=== PATIENT | female | born 1955 | race Caucasian/White ===

== ENCOUNTER 2020-04-06 11:00 | Emergency (ER) | payer SELFPAY ==
[~2020-04-06] VITALS: Ht 170.2 cm; Wt 106.1 kg
--- NOTE | 2020-04-06 11:24 | ED General ---
General Stated Complaint: ABNORMAL EKG History of Present Illness Date Seen by Provider: Apr 06, 2020 Time Seen by Provider: 11:23 Initial Comments 64-year-old female sent in due to chest pain and shortness of breath. Patient reports her symptoms have been going on for about 5 days. She has a history of emphysema/COPD. She has right-sided chest pain that gets worse with deep breaths. She denies any nausea vomiting diaphoresis or radiation of the pain. Patient continues to smoke a pack a day for cigarettes. She has no increased cough, fevers or chills. Allergies and Home Medications Allergies Coded Allergies: No Known Drug Allergies (Unverified , 04/06/20) Home Medications Albuterol Sulfate 18 Gm Hfa.aer.ad, 18 GM INH Q6H PRN for SHORTNESS OF BREATH Prescribed by: PREM MILIAN on 04/06/20 1258 Azithromycin 250 Mg Tablet, 250 MG PO UD TAKE 2 TABLETS ON DAY ONE THEN TAKE 1 TABLET DAILY FOR FOUR MORE DAYS Prescribed by: PREM MILIAN on 04/06/20 1258 Prednisone 20 Mg Tab, 40 MG PO DAILY Prescribed by: PREM MILIAN on 04/06/20 1258 Patient Home Medication List Home Medication List Reviewed: Yes Review of Systems Review of Systems Constitutional: No chills, No fever Respiratory: orthopnea, short of breath Cardiovascular: chest pain; No palpitations Gastrointestinal: No abdominal pain, No nausea, No vomiting Genitourinary: no symptoms reported Musculoskeletal: no symptoms reported Skin: no symptoms reported Psychiatric/Neurological: No Symptoms Reported Hematologic/Lymphatic: No Symptoms Reported Immunological/Allergic: no symptoms reported Past Djrynng-Urdaob-Uxyjys Hx Past Med/Social Hx: Reviewed Nursing Past Med/Soc Hx Physical Exam Vital Signs Vital Signs - First Documented 04/06/20 04/06/20 11:36 12:24 Temp 36.7 Pulse 79 Resp 18 B/P (MAP) 131/105 (114) Pulse Ox 93 O2 Delivery Room Air Capillary Refill : Height, Weight, BMI Height: '" Weight: lbs. oz. kg; BMI Method: General Appearance: No Apparent Distress, WD/WN Respiratory: No Accessory Muscle Use, Wheezing (Mild especially on the right side), Other (Tender to palpation right chest wall consistent with pleurisy) Cardiovascular: Regular Rate, Rhythm, No Edema Gastrointestinal: Non Tender, Soft Extremity: Normal Inspection, Normal Range of Motion Neurologic/Psychiatric: Alert, Oriented x3, Normal Mood/Affect, intelligence operations specialist II-XII Norm as Tested Skin: Normal Color, Warm/Dry Progress/Results/Core Measures Suspected Sepsis SIRS Temperature: Pulse: Respiratory Rate: Laboratory Tests 04/06/20 12:08: White Blood Count 12.1H Blood Pressure / Mean: Laboratory Tests 04/06/20 12:08: Creatinine 0.81, INR Comment 0.9, Platelet Count 348, Total Bilirubin 0.4 Results/Orders Lab Results Laboratory Tests Test 04/06/20 12:08 Range/Units White Blood Count 12.1 H 4.3-11.0 10^3/uL Red Blood Count 4.87 3.80-5.11 10^6/uL Hemoglobin 15.0 11.5-16.0 g/dL Hematocrit 45 35-52 % Mean Corpuscular Volume 93 80-99 fL Mean Corpuscular Hemoglobin 31 25-34 pg Mean Corpuscular Hemoglobin Concent 33 32-36 g/dL Red Cell Distribution Width 13.4 10.0-14.5 % Platelet Count 348 130-400 10^3/uL Mean Platelet Volume 9.9 9.0-12.2 fL Immature Granulocyte % (Auto) 0 % Neutrophils (%) (Auto) 55 42-75 % Lymphocytes (%) (Auto) 34 12-44 % Monocytes (%) (Auto) 8 0-12 % Eosinophils (%) (Auto) 2 0-10 % Basophils (%) (Auto) 0 0-10 % Neutrophils # (Auto) 6.7 1.8-7.8 10^3/uL Lymphocytes # (Auto) 4.1 H 1.0-4.0 10^3/uL Monocytes # (Auto) 0.9 0.0-1.0 10^3/uL Eosinophils # (Auto) 0.3 0.0-0.3 10^3/uL Basophils # (Auto) 0.1 0.0-0.1 10^3/uL Immature Granulocyte # (Auto) 0.1 0.0-0.1 10^3/uL Prothrombin Time 12.8 12.2-14.7 SEC INR Comment 0.9 0.8-1.4 Activated Partial Thromboplast Time 28 24-35 SEC Sodium Level 139 135-145 MMOL/L Potassium Level 4.0 3.6-5.0 MMOL/L Chloride Level 100 98-107 MMOL/L Carbon Dioxide Level 29 21-32 MMOL/L Anion Gap 10 5-14 MMOL/L Blood Urea Nitrogen 13 7-18 MG/DL Creatinine 0.81 0.60-1.30 MG/DL Estimat Glomerular Filtration Rate > 60 BUN/Creatinine Ratio 16 Glucose Level 68 L 70-105 MG/DL Calcium Level 9.0 8.5-10.1 MG/DL Corrected Calcium 8.8 8.5-10.1 MG/DL Magnesium Level 1.6 1.6-2.4 MG/DL Total Bilirubin 0.4 0.1-1.0 MG/DL Aspartate Amino Transf (AST/SGOT) 19 5-34 U/L Alanine Aminotransferase (ALT/SGPT) 18 0-55 U/L Alkaline Phosphatase 56 40-136 U/L Troponin I < 0.028 <0.028 NG/ML Total Protein 7.3 6.4-8.2 GM/DL Albumin 4.2 3.2-4.5 GM/DL My Orders Orders - MILIAN,PREM L DO Cbc With Automated Diff (04/06/20 11:33) Magnesium (04/06/20 11:33) Chest 1 View, Ap/Pa Only (04/06/20 11:33) Ekg Tracing (04/06/20 11:33) Comprehensive Metabolic Panel (04/06/20 11:33) Protime With Inr (04/06/20 11:33) Partial Thromboplastin Time (04/06/20 11:33) Monitor-Rhythm Ecg Trace Only (04/06/20 11:33) Ed Iv/Invasive Line Start (04/06/20 11:33) Troponin I (04/06/20 11:33) Albuterol/Ipra Inhalation Soln (Duoneb I (04/06/20 11:45) Svn Small Volume Nebulizer (04/06/20 11:37) Medications Given in ED Current Medications Medications Dose Ordered Sig/Gerard Route Start Time Stop Time Status Last Admin Dose Admin Albuterol/ Ipratropium 3 ml ONCE ONCE INH 04/06/20 11:45 04/06/20 11:46 DC 04/06/20 12:24 3 ML Vital Signs/I&O 04/06/20 04/06/20 04/06/20 11:36 11:41 12:24 Temp 36.7 Pulse 79 Resp 18 B/P (MAP) 131/105 (114) Pulse Ox 93 O2 Delivery Room Air Room Air Room Air Capillary Refill : Progress Note : Time: 12:51 Progress Note Patient feels significantly better following her breathing treatment. Her symptoms are consistent with the chronic bronchitis/emphysema flare. Patient will be discharged home with steroid, azithromycin and albuterol inhaler. She is stable upon discharge. ECG Initial ECG Impression Date: Apr 06, 2020 Initial ECG Impression Time: 11:45 Initial ECG Rate: 74 Initial ECG Rhythm: Normal Sinus Initial ECG Impression: Nonspecific Changes Comment Normal sinus rhythm, nonspecific changes, no acute findings Diagnostic Imaging Diagonstic Imaging: Xray Plain Films/CT/US/NM/MRI: chest Comments [facility], [place] NAME: MATTHEW BURNS [facility] REC#: [id number] PT STATUS: REG ER : 1955 PHYSICIAN: PREM MILIAN DO ADMIT DATE: 04/06/20/ER Draft Date of Exam:04/06/20 CHEST 1 VIEW, AP/PA ONLY INDICATION: Chest pain. COMPARISON: No prior examinations are available for comparison. FINDINGS: The heart size, mediastinal configuration, and pulmonary vascularity are within normal limits. There is no pleural effusion, pneumothorax, or pneumonia. The osseous structures are unremarkable. IMPRESSION: No acute cardiopulmonary abnormality. Departure Impression Primary Impression: COPD exacerbation Disposition: 01 HOME, SELF-CARE Condition: Stable Departure-Patient Inst. Referrals: EDDIE ROMAN MD (PCP/Family) Primary Care Physician Patient Instructions: How to Use a Spacer With a Mask, COPD Exacerbation, Adult ED Add. Discharge Instructions: Follow-up with your primary care provider next week for recheck of today's symptoms Scripts Albuterol Sulfate (Ventolin Hfa) 18 Gm Hfa.aer.ad 18 GM INH Q6H PRN for SHORTNESS OF BREATH, #1 EA Prov: PREM MILIAN DO 04/06/20 Prednisone (Prednisone) 20 Mg Tab 40 MG PO DAILY, #6 TAB 0 Refills Prov: PREM MILIAN DO 04/06/20 Azithromycin (Azithromycin) 250 Mg Tablet 250 MG PO UD, #6 TAB TAKE 2 TABLETS ON DAY ONE THEN TAKE 1 TABLET DAILY FOR FOUR MORE DAYS Prov: PERM MILIAN DO 04/06/20 PREM MILIAN DO Apr 06, 2020 11:24
[2020-04-06] MEDS ORDERED: RT-ALBUTEROL/IPRATROPIUM 3 ML (DUONEB) VIAL INH ONE (11:45)
[2020-04-06 12:21] LABS: BASOPHILS # (AUTO) 0.1 10^3/uL (0.0-0.1); BASOPHILS % (AUTO) 0 % (0-10); EOSINOPHILS # (AUTO) 0.3 10^3/uL (0.0-0.3); EOSINOPHILS % (AUTO) 2 % (0-10); HEMATOCRIT 45 % (35-52); LYMPHOCYTES # (AUTO) 4.1 10^3/uL (1.0-4.0); LYMPHOCYTES % (AUTO) 34 % (12-44); MEAN CORPUSCULAR HEMOGLOBIN 31 pg (25-34); MEAN CORPUSCULAR HGB CONC 33 g/dL (32-36); MEAN CORPUSCULAR VOLUME 93 fL (80-99); MEAN PLATELET VOLUME 9.9 fL (9.0-12.2); MONOCYTES # (AUTO) 0.9 10^3/uL (0.0-1.0); MONOCYTES % (AUTO) 8 % (0-12); NEUTROPHILS # (AUTO) 6.7 10^3/uL (1.8-7.8); NEUTROPHILS % (AUTO) 55 % (42-75); PLATELET COUNT 348 10^3/uL (130-400); WHITE BLOOD COUNT 12.1 10^3/uL (4.3-11.0)
--- NOTE | 2020-04-06 12:23 | Diagnostic Imaging Report ---
INDICATION: Chest pain. COMPARISON: No prior examinations are available for comparison. FINDINGS: The heart size, mediastinal configuration, and pulmonary vascularity are within normal limits. There is no pleural effusion, pneumothorax, or pneumonia. The osseous structures are unremarkable. IMPRESSION: No acute cardiopulmonary abnormality. Dictated by: Dictated on workstation # [id number]
[2020-04-06 12:29] LABS: ALBUMIN 4.2 GM/DL (3.2-4.5); CHLORIDE 100 MMOL/L (98-107); SODIUM 139 MMOL/L (135-145)
[2020-04-06 12:31] LABS: GLUCOSE 68 MG/DL (70-105); TOTAL PROTEIN 7.3 GM/DL (6.4-8.2)
[2020-04-06 12:32] LABS: CARBON DIOXIDE 29 MMOL/L (21-32)
[2020-04-06 12:33] LABS: BILIRUBIN,TOTAL 0.4 MG/DL (0.1-1.0); INR 0.9 (0.8-1.4); PROTHROMBIN TIME PATIENT 12.8 SEC (12.2-14.7)
[2020-04-06 12:35] LABS: ALKALINE PHOSPHATASE 56 U/L (40-136); CREATININE SERUM 0.81 MG/DL (0.60-1.30); GFR ESTIMATED > 60
[2020-04-06 12:36] LABS: BUN/CREATININE RATIO 16
[2020-04-06 12:38] LABS: ALANINE AMINOTRANSFERASE 18 U/L (0-55); MAGNESIUM 1.6 MG/DL (1.6-2.4)
[2020-04-06] MEDS ORDERED: PRD20T PO (12:58)
[2020-04-06] MEDS ORDERED: AZIT250T12 PO (12:58)
[2020-04-06] MEDS ORDERED: ALBU18HF2 INH (12:58)
[2020-04-06 13:11] VITALS: BP 144/82
== END 2020-04-06 13:11 | disposition home or self-care (01) ==
LOC: EDUNIT# 11:00 → ER 11:02
DX: J44.1 Chronic obstructive pulmonary disease with (acute) exacerbation (principal); Z79.52 Long term (current) use of systemic steroids
CPT/HCPCS: 36415; 71045; 80053; 83735; 84484; 85025; 85610; 85730; 93005; 93041; 94640

== ENCOUNTER 2021-08-01 21:30 | Inpatient (IN) | payer SELFPAY ==
[~2021-08-01] VITALS: Ht 170.1 cm; Wt 104.8 kg
[~2021-08-01 21:30] MED LIST: ALBU18HF2 INH; AZIT250T12 PO; PRD20T PO
[2021-08-01] MEDS ORDERED: GUAI600T43 PO (22:58)
[2021-08-01] MEDS ORDERED: LOVA40TA2 PO (22:58)
[2021-08-01] MEDS ORDERED: [UNRECOGNIZED DRUG - CODE] IV (22:58)
[2021-08-01] MEDS ORDERED: AMLO5TAB4 PO ×2 (22:58)
[2021-08-01] MEDS ORDERED: HYDR-3817 PO (22:58)
[2021-08-01] MEDS ORDERED: BUDE10.22 IH (22:58)
[2021-08-01] MEDS ORDERED: HYDR25TA4 PO (22:58)
[2021-08-01 23:42] VITALS: BP 151/82
[2021-08-02] VITALS (7 sets, daily range): BP systolic 131–173; BP diastolic 68–90
[2021-08-02] MEDS ORDERED: RT-ALBUTEROL HFA 8.5 GM INHALER IH PRN (03:15)
[2021-08-02] MEDS: dexAMETHasone 6 MG TAB (DECADRON) PO SCH ×2 (06:08→08:08)
[2021-08-02 07:25] LABS: HEMATOCRIT 47 % (35-52); HEMOGLOBIN 15.1 g/dL (11.5-16.0); MEAN CORPUSCULAR HEMOGLOBIN 31 pg (25-34); MEAN CORPUSCULAR HGB CONC 33 g/dL (32-36); MEAN CORPUSCULAR VOLUME 94 fL (80-99); MEAN PLATELET VOLUME 10.2 fL (9.0-12.2); PLATELET COUNT 284 10^3/uL (130-400); WHITE BLOOD COUNT 4.2 10^3/uL (4.3-11.0)
[2021-08-02 07:34] LABS: ALBUMIN 3.6 GM/DL (3.2-4.5)
[2021-08-02 07:35] LABS: POTASSIUM 4.2 MMOL/L (3.6-5.0)
[2021-08-02 07:36] LABS: CALCIUM 9.1 MG/DL (8.5-10.1)
[2021-08-02 07:37] LABS: TOTAL PROTEIN 6.8 GM/DL (6.4-8.2)
[2021-08-02 07:39] LABS: BILIRUBIN,TOTAL 0.4 MG/DL (0.1-1.0)
[2021-08-02 07:41] LABS: CREATININE SERUM 0.68 MG/DL (0.60-1.30)
[2021-08-02] MEDS: AtorvaSTATin TABLET 10 MG TABLET PO SCH (08:07)
[2021-08-02] MEDS: ENOXAPARIN 40 MG/0.4 ML (LOVENOX) SYR SQ SCH (08:07)
[2021-08-02] MEDS: amLODIPine 5 MG (NORVASC) TAB PO SCH (08:07)
[2021-08-02] MEDS: HYDROcodone/APAP 7.5 MG/325 MG (LORTAB, LORCET PLUS) TABLET PO PRN ×2 (08:07→21:39)
--- NOTE | 2021-08-02 08:53 | History & Physical ---
HPI History of Present Illness: Pt states she has had emphysema for years. She has had a couple of episodes over the years of shortness of breath and got antibiotics and was fine, this year same type of thing and she thought it was happening again, went to see clinic around July 24 and got antibiotics and prednisone. Had a lot of phlegm. She did feel better after she got those for a couple of days, but then stalled out in recovery, phlegm color cleared but she still felt short of breath a week later, getting harder to breathe at night. She thought maybe her SpO2 monitor was wrong because it was running low in the 80s. She went back in yesterday and had an xray and COVID test and given antibiotics. By the time she got home, they called and said she had bilateral pneumonia and positive COVID test and needed steroids, she was having low oxygen saturations so they told her to go the ER. At [facility] they transferred her here due to her comorbidities. Her on June 13 and on July 20 they had a memorial service, and she states by the many family members were sick and already back home across [address]. She has not been vaccinated. Source: patient Date seen by provider: Aug 02, 2021 Time Seen by Provider: 08:53 Attending Physician Ran Joe MD PCP Admitting Physician: Rena Mckeon MD Attending Physician: Rena Mckeon MD Consult Date of Admission Aug 01, 2021 at 21:30 Home Medications Home Medications Reviewed patient Home Medication Reconciliation performed by pharmacy medication reconciliations podiatric technician and/or nursing. Patients Allergies have been reviewed. Allergies Coded Allergies: No Known Drug Allergies (Unverified , 04/06/20) RGP-Hutqxc-Edrvtv Hx Patient Social History Smoking Status: Current Everyday Smoker 2nd Hand Smoke Exposure: No Recent Hopitalizations: No Alcohol Use?: No Tobacco type used: Cigarettes Have you traveled recently?: No Immunizations Up To Date Influenza Vaccine Up-to-Date: No; Not Current Past Medical History PMHx: Emphysema Chronic pain Diabetes- diet controlled HTN HLD SurgHx: Cholecystectomy 1980 Tubal ligation 1989 Right Carpal tunnel release 1992 Review of Systems (CHC) Constitutional: fever (subjective) Respiratory: cough, short of breath Cardiovascular: chest pain (with coughing) Gastrointestinal: abdominal pain (mild lower abdominal discomfort); No constip ation; diarrhea (mild/soft stool), nausea (when she drank Ensure); No vomiting Genitourinary: No dysuria Musculoskeletal: neck pain Skin: No rash Reviewed Test Results Reviewed Test Results Lab Laboratory Tests Test 08/02/21 07:15 Range/Units White Blood Count 4.2 L 4.3-11.0 10^3/uL Red Blood Count 4.95 3.80-5.11 10^6/uL Hemoglobin 15.1 11.5-16.0 g/dL Hematocrit 47 35-52 % Mean Corpuscular Volume 94 80-99 fL Mean Corpuscular Hemoglobin 31 25-34 pg Mean Corpuscular Hemoglobin Concent 33 32-36 g/dL Red Cell Distribution Width 13.9 10.0-14.5 % Platelet Count 284 130-400 10^3/uL Mean Platelet Volume 10.2 9.0-12.2 fL D-Dimer 0.65 H 0.00-0.49 UG/ML Sodium Level 141 135-145 MMOL/L Potassium Level 4.2 3.6-5.0 MMOL/L Chloride Level 99 98-107 MMOL/L Carbon Dioxide Level 29 21-32 MMOL/L Anion Gap 13 5-14 MMOL/L Blood Urea Nitrogen 8 7-18 MG/DL Creatinine 0.68 0.60-1.30 MG/DL Estimat Glomerular Filtration Rate 97 BUN/Creatinine Ratio 12 Glucose Level 177 H 70-105 MG/DL Calcium Level 9.1 8.5-10.1 MG/DL Corrected Calcium 9.4 8.5-10.1 MG/DL Total Bilirubin 0.4 0.1-1.0 MG/DL Aspartate Amino Transf (AST/SGOT) 19 5-34 U/L Alanine Aminotransferase (ALT/SGPT) 29 0-55 U/L Alkaline Phosphatase 74 40-136 U/L C-Reactive Protein High Sensitivity 3.88 H 0.00-0.50 MG/DL Total Protein 6.8 6.4-8.2 GM/DL Albumin 3.6 3.2-4.5 GM/DL Physical Exam-(CHC) Physical Exam Vital Signs VS - Last 72 Hours, by Label 08/01/21 08/02/21 08/02/21 08/02/21 23:42 00:47 01:00 02:20 Temp 37.0 Pulse 75 Resp 18 B/P (MAP) 151/82 (105) Pulse Ox 92 92 92 O2 Delivery Nasal Cannula Nasal Cannula Nasal Cannula Nasal Cannula O2 Flow Rate 3.00 3.00 3.00 3.00 08/02/21 08/02/21 08/02/21 08/02/21 03:02 03:54 07:32 09:20 Temp 37.1 36.4 36.5 Pulse 78 75 70 Resp 18 20 B/P (MAP) 157/90 (112) 170/88 (115) Pulse Ox 86 94 91 94 O2 Delivery Nasal Cannula Nasal Cannula Nasal Cannula O2 Flow Rate 3.00 3.00 4.00 FiO2 21 08/02/21 11:16 Temp 36.4 Pulse 81 Resp 20 B/P (MAP) 173/77 (109) Pulse Ox 93 O2 Delivery Nasal Cannula O2 Flow Rate 4.00 Capillary Refill : General Appearance: no apparent distress Respiratory: no accessory muscle use, wheezing Cardiovascular: regular rate, rhythm Gastrointestinal: normal bowel sounds, non tender, soft Extremities: pedal edema (trace) Neurologic/Psychiatric: alert, normal mood/affect Skin: normal color, warm/dry Assessment/Plan Assessment/Plan Admission Status: Inpatient Order (span 2 midnights) Reason for Inpatient Admission: COVID19 pneumonia with hypoxia and underlying COPD (1) COVID-19 Status: Acute Assessment & Plan: Dexamethasone daily, breathing treatments and supplemental oxygen as needed. Has been sick for more than a week, uncertain onset of illness. (2) COPD (chronic obstructive pulmonary disease) Status: Chronic Assessment & Plan: Resume home inhaled steroid/LABA along with MAT protocol. Qualifiers: (3) COPD exacerbation Status: Acute Assessment & Plan: Dexamethasone given COVID19. (4) Hypertension Status: Chronic Assessment & Plan: Resume home meds Qualifiers: Qualified Codes: I10 - Essential (primary) hypertension (5) Diabetes mellitus Status: Chronic Assessment & Plan: Diet controlled. Diabetic diet, sliding scale insulin. Qualifiers: Qualified Codes: E11.9 - Type 2 diabetes mellitus without complications (6) Hyperlipidemia Status: Chronic Assessment & Plan: Resume home statin. (7) Chronic pain Status: Chronic Assessment & Plan: Resume home pain meds. (8) DVT prophylaxis Status: Acute Assessment & Plan: Enoxaparin RENA MCKEON MD Aug 02, 2021 08:53
[2021-08-02] MEDS: RT-ALBUTEROL HFA 8.5 GM INHALER IH SCH ×3 (09:15→22:00)
[2021-08-02] MEDS: RT--FLUTICASONE/SALMETEROL 113-14 (AIRDUO RespiCLICK) IH SCH ×2 (09:19→22:01)
[2021-08-02] MEDS: PROMETHAZINE/ CODEINE SYRUP 5 ML UDC PO PRN ×2 (11:46→17:13)
[2021-08-02] MEDS: NICOTINE 21 MG (NICODERM) PATCH TD SCH (11:46)
[2021-08-02] MEDS ORDERED: ALB0.5V INH (14:45)
[2021-08-02] MEDS ORDERED: RT-ALBUINH IH (14:45)
[2021-08-02] MEDS ORDERED: GUAI200T4 PO (14:45)
[2021-08-02] MEDS ORDERED: HYLANDS LEG CRAMPS PO (14:45)
[2021-08-02] MEDS ORDERED: DOXY-311 PO (14:45)
[2021-08-02] MEDS ORDERED: CETI10TA17 PO (14:45)
[2021-08-02] MEDS ORDERED: PROM473S9 PO (14:45)
[2021-08-02] MEDS: inSUlin ASPART (NovoLOG) 1 UNIT/0.01 ML (CHARGE PER UNIT) SC SCH ×2 (17:14→21:40)
[2021-08-03] VITALS: BP 132/73
[2021-08-03] MEDS: RT-ALBUTEROL HFA 8.5 GM INHALER IH SCH ×6 (02:37→22:43)
[2021-08-03 04:46] VITALS: BP 149/78
[2021-08-03 05:54] LABS: HEMATOCRIT 44 % (35-52); HEMOGLOBIN 13.8 g/dL (11.5-16.0); MEAN CORPUSCULAR HEMOGLOBIN 30 pg (25-34); MEAN CORPUSCULAR HGB CONC 31 g/dL (32-36); MEAN CORPUSCULAR VOLUME 95 fL (80-99); MEAN PLATELET VOLUME 10.1 fL (9.0-12.2); PLATELET COUNT 287 10^3/uL (130-400); WHITE BLOOD COUNT 10.4 10^3/uL (4.3-11.0)
[2021-08-03] MEDS: inSUlin ASPART (NovoLOG) 1 UNIT/0.01 ML (CHARGE PER UNIT) SC SCH ×4 (05:59→21:17)
--- NOTE | 2021-08-03 06:05 | Progress Note - Hospitalist ---
Subjective HPI/CC On Admission Date Seen by Provider: Aug 03, 2021 Time Seen by Provider: 10:00 Subjective/Events-last exam Patient feeling a lot better Chest x-ray will be ordered Wants to go but feels a bit too short of breath to do that today No pain reported RN has no concerns Review of Systems Pulmonary: Dyspnea Objective Exam Vital Signs Vital Signs Date Time Temp Pulse Resp B/P (MAP) Pulse Ox O2 Delivery O2 Flow Rate FiO2 08/04/21 03:40 36.1 68 16 137/76 (96) 95 Nasal Cannula 2.00 08/02/21 22:50 21 Capillary Refill : General Appearance: No Apparent Distress, WD/WN, Chronically ill, Obese Respiratory: No Accessory Muscle Use, No Respiratory Distress, Decreased Breath Sounds, Wheezing Cardiovascular: Regular Rate, Rhythm Neurologic/Psychiatric: Alert, Oriented x3, No Motor/Sensory Deficits, Normal Mood/Affect Results/Procedures Lab Patient resulted labs reviewed. Assessment/Plan Assessment and Plan Assess & Plan/Chief Complaint Assessment: COVID-19 pneumonia Hypoxia Smoker Dyspnea Plan: Check chest x-ray Home oxygen NICOLE Lilly DO Aug 03, 2021 06:05
[2021-08-03 06:12] LABS: ALBUMIN 3.4 GM/DL (3.2-4.5); POTASSIUM 4.2 MMOL/L (3.6-5.0)
[2021-08-03 06:13] LABS: CALCIUM 8.7 MG/DL (8.5-10.1)
[2021-08-03 06:14] LABS: TOTAL PROTEIN 6.2 GM/DL (6.4-8.2)
[2021-08-03 06:16] LABS: BILIRUBIN,TOTAL 0.3 MG/DL (0.1-1.0)
[2021-08-03 06:18] LABS: CREATININE SERUM 0.76 MG/DL (0.60-1.30)
[2021-08-03] MEDS: ENOXAPARIN 40 MG/0.4 ML (LOVENOX) SYR SQ SCH (06:29)
[2021-08-03] MEDS: RT--FLUTICASONE/SALMETEROL 113-14 (AIRDUO RespiCLICK) IH SCH ×2 (07:12→19:06)
[2021-08-03 07:50] VITALS: BP 135/77
[2021-08-03] MEDS: NICOTINE 21 MG (NICODERM) PATCH TD SCH (09:35)
[2021-08-03] MEDS: amLODIPine 5 MG (NORVASC) TAB PO SCH (09:35)
[2021-08-03] MEDS: AtorvaSTATin TABLET 10 MG TABLET PO SCH (09:36)
[2021-08-03] MEDS: NICOTINE PATCH REMOVAL TP SCH (09:36)
[2021-08-03 11:50] VITALS: BP 151/83
[2021-08-03] MEDS: HYDROcodone/APAP 7.5 MG/325 MG (LORTAB, LORCET PLUS) TABLET PO PRN ×2 (12:20→21:21)
--- NOTE | 2021-08-03 12:54 | Diagnostic Imaging Report ---
INDICATION: Wheezing. History of Covid pneumonia. FINDINGS: There is mild prominence of the pulmonary interstitial markings which would be compatible with a viral pneumonia. There are some patchy airspace opacities at the right base. There is no large effusion. There is no pneumothorax. The heart is unchanged from the prior examination when allowing for differences in technique. There are no findings to suggest edema or failure. IMPRESSION: Mild pulmonary interstitial prominence as well as a few airspace opacities at the right base. Findings could be seen in the setting of a viral pneumonia. There is no effusion or evidence of pulmonary edema. Dictated by: Dictated on workstation # [id number]
[2021-08-03 16:18] VITALS: BP 155/89
[2021-08-03 20:18] VITALS: BP 159/83
[2021-08-04 00:11] VITALS: BP 169/84
[2021-08-04] MEDS: RT-ALBUTEROL HFA 8.5 GM INHALER IH SCH ×6 (02:20→21:45)
[2021-08-04 03:40] VITALS: BP 137/76
[2021-08-04] MEDS: inSUlin ASPART (NovoLOG) 1 UNIT/0.01 ML (CHARGE PER UNIT) SC SCH ×4 (06:32→21:14)
[2021-08-04] MEDS: dexAMETHasone 6 MG TAB (DECADRON) PO SCH (06:33)
[2021-08-04] MEDS: ENOXAPARIN 40 MG/0.4 ML (LOVENOX) SYR SQ SCH (06:34)
[2021-08-04 07:01] LABS: BASOPHILS % (AUTO) 0 % (0-10); EOSINOPHILS % (AUTO) 0 % (0-10); HEMATOCRIT 46 % (35-52); HEMOGLOBIN 14.7 g/dL (11.5-16.0); LYMPHOCYTES # (AUTO) 1.6 10^3/uL (1.0-4.0); LYMPHOCYTES % (AUTO) 18 % (12-44); MEAN CORPUSCULAR HEMOGLOBIN 31 pg (25-34); MEAN CORPUSCULAR HGB CONC 32 g/dL (32-36); MEAN CORPUSCULAR VOLUME 96 fL (80-99); MEAN PLATELET VOLUME 9.6 fL (9.0-12.2); MONOCYTES % (AUTO) 12 % (0-12); NEUTROPHILS # (AUTO) 6.2 10^3/uL (1.8-7.8); NEUTROPHILS % (AUTO) 70 % (42-75); PLATELET COUNT 290 10^3/uL (130-400); WHITE BLOOD COUNT 8.9 10^3/uL (4.3-11.0)
[2021-08-04 07:24] LABS: ALBUMIN 3.5 GM/DL (3.2-4.5); BILIRUBIN,TOTAL 0.4 MG/DL (0.1-1.0); CALCIUM 9.1 MG/DL (8.5-10.1); CREATININE SERUM 0.71 MG/DL (0.60-1.30); POTASSIUM 4.3 MMOL/L (3.6-5.0); TOTAL PROTEIN 6.6 GM/DL (6.4-8.2)
--- NOTE | 2021-08-04 07:31 | Progress Note - Hospitalist ---
Subjective HPI/CC On Admission Date Seen by Provider: Aug 04, 2021 Time Seen by Provider: 11:00 Subjective/Events-last exam Patient remains shortness of breath Cough is still an issue Remains on 2 L of oxygen continuous She remains weak and lethargic Hopefully discharge tomorrow Review of Systems Pulmonary: Dyspnea, Cough Objective Exam Vital Signs Vital Signs Date Time Temp Pulse Resp B/P (MAP) Pulse Ox O2 Delivery O2 Flow Rate FiO2 08/04/21 20:30 36.1 72 20 175/83 (113) 92 Nasal Cannula 2.00 08/02/21 22:50 21 Capillary Refill : General Appearance: No Apparent Distress, WD/WN, Chronically ill Respiratory: Crackles, Wheezing Cardiovascular: Regular Rate, Rhythm Neurologic/Psychiatric: Alert, Oriented x3, No Motor/Sensory Deficits, Normal Mood/Affect Results/Procedures Lab Laboratory Tests 08/04/21 06:53 Patient resulted labs reviewed. Assessment/Plan Assessment and Plan Assess & Plan/Chief Complaint Assessment: COVID-19 pneumonia Hypoxia Smoker Dyspnea Plan: Check chest x-ray Home oxygen eval Monitor wheezing NICOLE VILLARREAL DO Aug 04, 2021 07:31
[2021-08-04] MEDS: RT--FLUTICASONE/SALMETEROL 113-14 (AIRDUO RespiCLICK) IH SCH ×2 (08:06→21:45)
[2021-08-04] MEDS: AtorvaSTATin TABLET 10 MG TABLET PO SCH (08:09)
[2021-08-04] MEDS: NICOTINE PATCH REMOVAL TP SCH (08:09)
[2021-08-04] MEDS: amLODIPine 5 MG (NORVASC) TAB PO SCH (08:09)
[2021-08-04] MEDS: NICOTINE 21 MG (NICODERM) PATCH TD SCH (08:09)
[2021-08-04] MEDS: HYDROcodone/APAP 7.5 MG/325 MG (LORTAB, LORCET PLUS) TABLET PO PRN ×2 (08:12→21:14)
[2021-08-04 08:23] VITALS: BP 156/81
[2021-08-04] MEDS: PROMETHAZINE/ CODEINE SYRUP 5 ML UDC PO PRN (10:03)
[2021-08-04 11:11] VITALS: BP 148/81
[2021-08-04] MEDS ORDERED: ACETAMINOPHEN 500 MG TAB (TYLENOL) PO ONE (12:45)
[2021-08-04 16:03] VITALS: BP 155/82
[2021-08-04 20:30] VITALS: BP 175/83
[2021-08-05] VITALS: BP 152/84
[2021-08-05 04:00] VITALS: BP 148/82
[2021-08-05] MEDS: inSUlin ASPART (NovoLOG) 1 UNIT/0.01 ML (CHARGE PER UNIT) SC SCH ×2 (06:01→12:02)
[2021-08-05] MEDS: ENOXAPARIN 40 MG/0.4 ML (LOVENOX) SYR SQ SCH (06:04)
[2021-08-05] MEDS: dexAMETHasone 6 MG TAB (DECADRON) PO SCH (06:04)
--- NOTE | 2021-08-05 06:12 | Progress Note - Hospitalist ---
Subjective HPI/CC On Admission Date Seen by Provider: Aug 05, 2021 Time Seen by Provider: 10:00 Objective Exam Vital Signs Vital Signs Date Time Temp Pulse Resp B/P (MAP) Pulse Ox O2 Delivery O2 Flow Rate FiO2 08/05/21 13:58 36.8 79 20 184/92 95 Nasal Cannula 2.00 08/02/21 22:50 21 Capillary Refill : Results/Procedures Lab Patient resulted labs reviewed. Assessment/Plan Assessment and Plan Assess & Plan/Chief Complaint Assessment: COVID-19 pneumonia Hypoxia Smoker Dyspnea Plan: Check chest x-ray Home oxygen eval Monitor wheezing NICOLE VILLARREAL DO Aug 05, 2021 06:12
[2021-08-05] MEDS: RT-ALBUTEROL HFA 8.5 GM INHALER IH SCH ×2 (07:03→11:45)
[2021-08-05] MEDS: RT--FLUTICASONE/SALMETEROL 113-14 (AIRDUO RespiCLICK) IH SCH (07:04)
[2021-08-05 08:23] VITALS: BP 161/88
[2021-08-05] MEDS ORDERED: GFCD10B PO (09:53)
[2021-08-05] MEDS ORDERED: MONT10TA21 PO (09:53)
[2021-08-05] MEDS ORDERED: DEXA6TAB PO (09:53)
[2021-08-05] MEDS ORDERED: NICO1PAT34 TD (09:53)
[2021-08-05] MEDS: NICOTINE PATCH REMOVAL TP SCH (10:56)
[2021-08-05] MEDS: NICOTINE 21 MG (NICODERM) PATCH TD SCH (10:56)
[2021-08-05] MEDS: amLODIPine 5 MG (NORVASC) TAB PO SCH (10:57)
[2021-08-05] MEDS: AtorvaSTATin TABLET 10 MG TABLET PO SCH (10:57)
[2021-08-05] MEDS: HYDROcodone/APAP 7.5 MG/325 MG (LORTAB, LORCET PLUS) TABLET PO PRN (10:57)
[2021-08-05 11:43] VITALS: BP 184/92
[2021-08-05 13:58] VITALS: BP 184/92
--- NOTE | 2021-08-05 21:27 | Discharge Summary ---
Discharge Summary Hospital Course Was the Problem List Reviewed?: Yes Problems/Dx: (1) COVID-19 Status: Acute (2) COPD (chronic obstructive pulmonary disease) Status: Chronic Qualifiers: (3) Hypertension Status: Chronic Qualifiers: Qualified Codes: I10 - Essential (primary) hypertension (4) Diabetes mellitus Status: Chronic Qualifiers: Qualified Codes: E11.9 - Type 2 diabetes mellitus without complications Hospital Course Date of Admission: Aug 01, 2021 at 21:30 Admission Diagnosis : Family Physician/Provider: Ran Joe MD Date of Discharge: 08/05/21 Discharge Diagnosis: acute hypoxic resp failure, COVID 19, AeCOPD, smoker Hospital Course: Hospital course patient had an uneventful hospital course after she was admitted for COVID-19 pneumonia with hypoxia and exacerbation of COPD with current smoking. Smoking cessation counseled. IV Decadron initiated along with oxygen supplementation and incentive spirometer. Labs and chest x-ray remained stable patient was discharged in improved condition on 2 L continuous oxygen. Labs and Pending Lab Test: Laboratory Tests 08/05/21 05:59: Glucometer 142H 08/05/21 11:42: Glucometer 273H Home Meds Active Robitussin Ac (Codeine) Syrup (Guaifenesin/Codeine Phosphate) 10 Ml Syrp 10 Ml PO Q4H PRN Singulair (Montelukast Sodium) 10 Mg Tablet 10 Mg PO DAILY Dexamethasone 6 Mg Tablet 6 Mg PO DAILY@0700 Nicoderm Cq (Nicotine) 21 Mg/24 Hour Patch.td24 21 Mg TD DAILY@0900 Reported Cetirizine HCl 10 Mg Tablet 10 Mg PO DAILY [Hylands Leg Cramps] 1-2 Ea PO HS Albuterol Sulfate 2.5 Mg/0.5 Ml Vial.neb 2.5 Mg INH Q4H PRN Promethazine-Codeine Solution (Promethazine HCl/Codeine) 6.25 Mg-10 Mg/5 Ml Syrup 5 Ml PO Q6H PRN Proair Hfa (Albuterol Sulfate) 1 Puff Puff 2 Puff IH Q4H PRN Guaifenesin 200 Mg Tablet 400-600 Mg PO Q6H PRN Hydrochlorothiazide 25 Mg Tablet 25 Mg PO DAILY Lovastatin 40 Mg Tablet 40 Mg PO DAILY Hydrocodone-Acetamin 7.5-325 (Hydrocodone/Acetaminophen) 7.5 Mg-325 Mg Tablet 1 Ea PO BID PRN Norvasc (Amlodipine Besylate) 5 Mg Tablet 5 Mg PO DAILY Assessment/Pt Instructions PCP 1 week Discharge Planning: <30 minutes discharge planning Discharge Physical Examination Vital Signs Vital Signs Date Time Temp Pulse Resp B/P (MAP) Pulse Ox O2 Delivery O2 Flow Rate FiO2 08/05/21 13:58 36.8 79 20 184/92 95 Nasal Cannula 2.00 08/02/21 22:50 21 General Appearance: No Apparent Distress, WD/WN Respiratory: No Accessory Muscle Use, No Respiratory Distress, Decreased Breath Sounds, Wheezing Cardiovascular: Regular Rate, Rhythm Neurologic/Psychiatric: Alert, Oriented x3, No Motor/Sensory Deficits, Normal Mood/Affect Allergies: Coded Allergies: No Known Drug Allergies (Unverified , 04/06/20) Discharge Summary Date of Admission Aug 01, 2021 at 21:30 Date of Discharge Aug 05, 2021 at 14:35 Discharge Date: Aug 05, 2021 Discharge Diagnosis Assessment: COVID-19 pneumonia Hypoxia Smoker Dyspnea Plan: Check chest x-ray Home oxygen eval Monitor wheezing NICOLE VILLARREAL DO Aug 05, 2021 21:27
== END 2021-08-05 14:35 | disposition home or self-care (01) | DRG 177 ==
LOC: 4TH 21:30 → OBSVTOIN 21:30
PROVIDERS: ADMIT Family Medicine; ATTEND Internal Medicine
PROC: 8E0ZXY6 Isolation (ICD-10-PCS; principal; 2021-08-02)
DX: U07.1 COVID-19 (principal); J12.82 Pneumonia due to coronavirus disease 2019; J96.01 Acute respiratory failure with hypoxia; J43.9 Emphysema, unspecified; Z28.310 Unvaccinated for COVID-19; Z28.9 Immunization not carried out for unspecified reason; Z73.0 Burn-out; F17.210 Nicotine dependence, cigarettes, uncomplicated; G89.29 Other chronic pain; E11.9 Type 2 diabetes mellitus without complications; I10 Essential (primary) hypertension; E78.00 Pure hypercholesterolemia, unspecified
CPT/HCPCS: 36415; 71045; 80053; 82947; 84145; 85025; 85027; 85379; 86141; 94640; 94761

== ENCOUNTER 2021-11-11 09:15 | Emergency (ER) | payer MEDICARE ==
[~2021-11-11] VITALS: Ht 170 cm; Wt 108.8 kg
[~2021-11-11 09:15] MED LIST changes: +ALB0.5V INH; +AMLO5TAB4 PO; +BUDE10.22 IH; +CETI10TA17 PO; +DEXA6TAB PO; +DOXY-311 PO; +GFCD10B PO; +GUAI200T4 PO; +GUAI600T43 PO; +HYDR-3817 PO; +HYDR25TA4 PO; +HYLANDS LEG CRAMPS PO; +LOVA40TA2 PO; +MONT10TA21 PO; +NICO1PAT34 TD; +PROM473S9 PO; +RT-ALBUINH IH; +[UNRECOGNIZED DRUG - CODE] IV
[2021-11-11] MEDS ORDERED: TETRACAINE 0.5% OPHTH SOLN 4 ML BTL (SINGLE DOSE ONLY) OU ONE (09:30)
[2021-11-11] MEDS ORDERED: FLUORESCEIN (FLUOR-I-STRIPS) 1 MG STRP OU ONE (09:30)
--- NOTE | 2021-11-11 09:32 | ED EENT ---
History of Present Illness General Chief Complaint: Eye Problems Stated Complaint: UNK OBJECT IN RIGHT EYE Source: patient Exam Limitations: no limitations History of Present Illness Date Seen by Provider: Nov 11, 2021 Time Seen by Provider: 09:22 Initial Comments Patient to the ER by private conveyance from home with chief complaint that she is having some increasing pain and redness and watering of her right eye and the upper right outer canthus. She states this happened earlier last week and she felt like there was red and painful so she went to her doctor who put her on Polytrim. She did not have an eye exam with fluorescein at that time. She is not having any blurry vision or double vision. She does wear glasses but not contacts. She says she does not work in a giancarlo environment nor she been around any fragments or particles. She says mostly she sits at a computer. Allergies and Home Medications Allergies Coded Allergies: No Known Drug Allergies (Unverified , 04/06/20) Patient Home Medication List Home Medication List Reviewed: Yes Albuterol Sulfate (Proair Hfa) 1 Puff Puff, 2 PUFF IH Q4H PRN for SHORTNESS OF BREATH, (Reported) Entered as Reported by: ERIC BAUTISTA on 08/02/21 1445 Albuterol Sulfate (Albuterol Sulfate) 2.5 Mg/0.5 Ml Vial.neb, 2.5 MG INH Q4H PRN for SHORTNESS OF BREATH, (Reported) Entered as Reported by: ERIC BAUTISTA on 08/02/21 1445 Amlodipine Besylate (Norvasc) 5 Mg Tablet, 5 MG PO DAILY, (Reported) Entered as Reported by: FLETCHER FARLEY on 08/01/21 2258 Cetirizine HCl (Cetirizine HCl) 10 Mg Tablet, 10 MG PO DAILY, (Reported) Entered as Reported by: ERIC BAUTISTA on 08/02/21 1445 Dexamethasone (Dexamethasone) 6 Mg Tablet, 6 MG PO DAILY@0700 Prescribed by: NICOLE VILLARREAL on 08/05/21 0953 Guaifenesin (Guaifenesin) 200 Mg Tablet, 400-600 MG PO Q6H PRN for CONGESTION, (Reported) Entered as Reported by: ERIC BAUTISTA on 08/02/21 1445 Guaifenesin/Codeine (Robitussin Ac (Codeine) Syrup) 10 Ml Syrp, 10 ML PO Q4H PRN for COUGH Prescribed by: NICOLE VILLARREAL on 08/05/21952 Hydrochlorothiazide (Hydrochlorothiazide) 25 Mg Tablet, 25 MG PO DAILY, (Reported) Entered as Reported by: FLETCHER FARLEY on 08/01/212257 Hydrocodone/Acetaminophen (Hydrocodone-Acetamin 7.5-325) 7.5 Mg-325 Mg Tablet, 1 EA PO BID PRN for PAIN-MODERATE (5-7), (Reported) Entered as Reported by: FLETCHER FARLEY on 08/01/212257 Lovastatin (Lovastatin) 40 Mg Tablet, 40 MG PO DAILY, (Reported) Entered as Reported by: FLETCHER FARLEY on 08/01/212257 Montelukast Sodium (Singulair) 10 Mg Tablet, 10 MG PO DAILY Prescribed by: NICOLE VILLARREAL on 08/05/21952 Nicotine (Nicoderm Cq) 21 Mg/24 Hour Patch.td24, 21 MG TD DAILY@0900 Prescribed by: NICOLE VILLARREAL on 08/05/21952 Promethazine HCl/Codeine (Promethazine-Codeine Solution) 6.25 Mg-10 Mg/5 Ml Syrup, 5 ML PO Q6H PRN for COUGH, (Reported) Entered as Reported by: ERIC BAUTISTA on 08/02/21 144 [[facility] Leg Cramps] , 1-2 EA PO HS, (Reported) Entered as Reported by: ERIC BAUTISTA on 08/02/21 144 Review of Systems Review of Systems Constitutional: No chills, No diaphoresis Eyes: See HPI; Denies Blindness, Denies Blurred Vision; Foreign Body Sensation, Pain Ears: Denies Dizziness, Denies Pain Nose: denies clots, denies congestion Throat: denies pain, denies swelling All Other Systems Reviewed Negative Unless Noted: Yes Past Lpopmhs-Vgbejk-Oqxztw Hx Patient Social History Use of E-Cig and/or Vaping dev: No Substance use?: No Seasonal Allergies Seasonal Allergies: Yes Past Medical History Surgeries: Yes Gallbladder, Tubal Ligation Respiratory: Yes Asthma, Chronic Bronchitis, Emphysema Cardiac: Yes Hypertension Neurological: No Genitourinary: No Gastrointestinal: Yes Hepatitis Musculoskeletal: Yes Fractures Endocrine: Yes Diabetes, Non-Insulin dep HEENT: No Cancer: No Psychosocial: No Integumentary: Yes Blood Disorders: No Physical Exam Vital Signs Vital Signs - First Documented 11/11/21 09:20 Temp 36.8 Pulse 80 Resp 18 B/P (MAP) 134/90 (105) Pulse Ox 96 O2 Delivery Nasal Cannula O2 Flow Rate 2.00 Height, Weight, BMI Height: '" Weight: lbs. oz. kg; 36.22 BMI Method: General Appearance: WD/WN, no apparent distress Eyes: bilateral eye normal inspection, bilateral eye PERRL, bilateral eye EOMI, bilateral eye other (20/50 right, 20/50 left and 20/30 combined) Ears: bilateral ear auricle normal, bilateral ear canal normal Neck: full range of motion, supple Cardiovascular: normal peripheral pulses, regular rate, rhythm Respiratory: no respiratory distress, no accessory muscle use Progress/Results/Core Measures Results/Orders My Orders Orders - ELENA WANG Tetracaine 0.5% Ophth Arabella Sdv (Tetracai (11/11/21 09:30) Fluorescein Strips (Xuore-P-Okilws) (11/11/21 09:30) Tetracaine 0.5% Ophth Arabella Sdv (Tetracai (11/11/21 09:41) Medications Given in ED Current Medications Medications Dose Ordered Sig/Gerard Route Start Time Stop Time Status Last Admin Dose Admin Fluorescein Sodium 1 mg ONCE ONCE OU 11/11/21 09:30 11/11/21 09:31 DC 11/11/21 10:02 1 MG Tetracaine HCl 4 ml ONCE ONCE OU 11/11/21 09:30 11/11/21 09:31 DC 11/11/21 10:03 4 ML Vital Signs/I&O 11/11/21 09:20 Temp 36.8 Pulse 80 Resp 18 B/P (MAP) 134/90 (105) Pulse Ox 96 O2 Delivery Nasal Cannula O2 Flow Rate 2.00 Progress Progress Note #1: Time: 09:31 Progress Note Plan to do tetracaine and fluorescein staining looking for corneal abrasion etc. Progress Note #2: Time: 10:21 Progress Note No evidence of corneal abrasion. There are some stringy mucus and a little bit of prominence of the soft tissue under the upper eyelid of the right eye laterally. Discussed the case with Dr. Hampton who would like to see her at the clinic at 1245. Departure Impression Primary Impression: Visual disturbance Disposition: 01 HOME, SELF-CARE Condition: Stable Departure-Patient Inst. Decision time for Depature: 10:23 Referrals: EDDIE ROMAN MD (PCP/Family) Primary Care Physician SUGAR HAMPTON OD Patient Instructions: Corneal Abrasion (DC) Add. Discharge Instructions: Continue to use the antibiotics as prescribed. It is unclear what is causing your symptoms but since they are persistent I would like you to go see Dr. Hampton. He has an appointment for you at 1245 today. All discharge instructions reviewed with patient and/or family. Voiced understanding. Copy Copies To 1: SUGAR HAMPTON OD, TITUS J Nov 11, 2021 09:32
[2021-11-11] MEDS ORDERED: TETRACAINE 0.5% OPHTH SOLN 4 ML BTL (SINGLE DOSE ONLY) ONE (09:41)
[2021-11-11 10:32] VITALS: BP 156/92
== END 2021-11-11 10:32 | disposition home or self-care (01) ==
LOC: EDUNIT# 09:15 → ER 09:16
DX: H53.9 Unspecified visual disturbance (principal); Z28.310 Unvaccinated for COVID-19
CPT/HCPCS: 99282

== ENCOUNTER → 2022-01-27 | Outpatient (CLI) | payer MEDICARE, OTHER ==
[~2022-01-27] MED LIST changes: +ALBU8.5H6 IH; -DOXY-311 PO; +DOXY-444 PO; -RT-ALBUINH IH; +RT-ALBUTEROL SULF 2.5 MG/3 ML PRE-MIX VIAL INH ONE
== END ==
LOC: RT 13:00
PROVIDERS: ATTEND Internal Medicine
DX: J44.9 Chronic obstructive pulmonary disease, unspecified (principal)
CPT/HCPCS: 94060; 94726; 94729